=== PATIENT | female | born 2000 | race Two or more races ===

== ENCOUNTER 2022-05-29 11:22 | Outpatient (REF) | payer OTHER, SELFPAY ==
[2022-05-29 13:58] LABS: Hematocrit 38.3 % (37.0-47.0); Hemoglobin 12.3 g/dl (12.0-16.0); Mean Corpuscular HGB Conc 32.1 g/dl (31.0-35.0); Mean Corpuscular Hemoglobin 25.9 pg (27.0-33.0); Mean Corpuscular Volume 80.8 fL (80.0-98.0); Mean Platelet Volume 10.1 fL (9.4-12.3); Platelet Count 316 X10*3/uL (160-400); Red Blood Count 4.74 X10*6/uL (4.20-5.50); Red Cell Distribution Width 13.4 % (11.0-16.0); White Blood Count 9.5 X10*3/uL (4.8-10.8)
[2022-05-29 14:50] LABS: Alanine Aminotransferase 13 U/L (0-31); Albumin Level 3.8 g/dL (3.5-5.0); Alkaline Phosphatase 57 U/L (39-117); Anion Gap 13 (12-20); Aspartate Amino Transferase 15 U/L (5-31); Bilirubin Total 0.6 mg/dL (0.0-1.0); Blood Urea Nitrogen 11 mg/dL (9-16); Calcium 9.1 mg/dL (8.4-10.2); Carbon Dioxide 22 mmol/L (22-29); Chloride 108 mmol/L (96-108); Cholesterol 132 mg/dL; Estimated Glomerular Filt Rate > 60; Glucose Fasting 74 mg/dL (60-99); HDL Cholesterol 43 mg/dL; LDL Cholesterol Calculated 73 mg/dl; Potassium 4.6 mmol/L (3.3-5.1); Sodium 138 mmol/L (135-145); Total Protein 6.7 g/dL (6.5-8.0); Triglycerides 84 mg/dL
[2022-05-29 15:04] LABS: Folate > 20.0 ng/mL (> or = 4.0); TSH reflex Free T4 1.55 uIU/mL (0.32-4.0)
== END 2022-05-29 11:23 | disposition home or self-care (01) ==
LOC: HO.WFDLDS 11:22
PROVIDERS: Visit Provider Hospitalist
DX: O99.211 Obesity complicating pregnancy, first trimester (principal); E66.01 Morbid (severe) obesity due to excess calories; Z3A.01 Less than 8 weeks gestation of pregnancy
CPT/HCPCS: 36415; 80053; 80061; 82746; 84443; 85027

== ENCOUNTER 2023-12-02 15:04 | Outpatient (AMB) | payer OTHER, SELFPAY ==
--- NOTE | 2023-12-02 15:11 | A.OFFPC_ITS ---
Vital Signs 12/02/23 15:18 Height 5 ft 1.73 in Weight 243 lb 8 oz BMI 44.9 BP 104/78 Blood Pressure Location Lt brachial Position Sitting Respiration 16 Pulse 87 Pulse Source Pulse Oximeter Temp 98.8 F Temp Source Oral Pulse Oximetry (%) 98 Oxygen Delivery Method Room Air Intake Visit Reasons: ALETA/yellowing hands Intake Note: New patient visit. Went to [facility] last Friday, they were supposed to fax records and ultrasound. Not scanned in her chart yet. Maintenance Job Titles Required: No Allergies No Known Allergies Allergy (Verified 12/02/23 15:11) Tobacco use date assessed: 12/02/23 Dental Screening Dental Screen Date: 12/02/23 Did you have a dental visit in the last 12 months?: Yes Did you have a dental problem in the last 6 months where you did not have access to dental care?: No Was dental information given to patient?: Patient has dentist (Has appt set up for 12/16/23) HPI HPI Comments History of Present Illness Details Patient is a 22 year old female with a past medical history of anxiety presenting to [facility] care She was recently in [facility] ED where she was evaluated for epigastric/chest pain. Her records were requested but have not yet been received. She had an ultrasound of the abdomen which showed gallstones without cholecystitis. She was advised to follow up with pcp etc. She continues to have freuqnent episodes of pain in the epigastric area/chest. She is unsure if it is worse with breathing, eating or position. denies vomiting/ dark or blood in the stool ROS see HPI PHYSICAL EXAM: GENERAL: Alert and oriented x 3. NAD EYES: EOMI. Anicteric. HENT: Moist mucous membranes. No scleral icterus. No cervical lymphadenopathy. LUNGS: Clear to auscultation bilaterally. CARDIOVASCULAR: Regular rate and rhythm. No murmur. No JVD. ABDOMEN: Soft, non-tender +bs EXTREMITIES: No edema. Non-tender. SKIN: No rashes or lesions. Warm. NEUROLOGIC: No focal neurological deficits. CN II-XII grossly intact PSYCHIATRIC: Cooperative. Appropriate mood and affect [facility] Medical History Blockage of kidney vein Kidney infection Family History Mother Hypertension Enlarged heart Maternal Grandmother Hypertension Diabetes Maternal Grandfather Cancer Sister Asthma Social History Housing: House Alcohol intake: never Patient Tobacco Use Status: Never used Tobacco e-Cigarette/Vaping Use: Never Used Second Hand Smoke Exposure: No service: No Current occupational status: employed Current occupation: Adminstrative marketing communications assistant Current occupational exposures/hazards: No Cognitive needs: No Hearing needs: No Vision needs: No Questionnaire PHQ-9 Over the last 2 weeks, how often have you been bothered by any of the following problems? 1. Little interest or pleasure in doing things: not at all 2. Feeling down, depressed, or hopeless: not at all 3. Trouble falling or staying asleep, or sleeping too much: not at all 4. Feeling tired or having little energy: not at all 5. Poor appetite or overeating: not at all 6. Feeling bad about yourself - or that you are a failure or have let yourself or your family down: not at all 7. Trouble concentrating on things, such as reading the newspaper or watching television: not at all 8. Moving or speaking so slowly that other people could have noticed. Or the opposite - being so fidgety or restless that you have been moving around a lot more than usual: not at all 9. Thoughts that you would be better off or of hurting yourself in some way: not at all Total score: 0 Depression Screening Interpretation: Negative Depression Screening Done: Yes [id number] - PHQ-9 Billing: Yes Source: Developed by Drs. Gerry Claire, Rachel Ortiz, Jamari Whittington and colleagues, with an educational dacia from [employer]. Thrive Questionnaire Date Thrive assessed: 05/29/22 I am a: Patient What is your living situation today?: I have a steady place to live Within the past 12 months, did the food you bought not last and you didn't have the money to get more?: I choose not to answer this question Within the past 12 months, did you worry whether your food would run out before you got money to buy more?: Never true Do you have trouble paying for medicines?: No Do you have trouble getting transportation to medical appointments?: No Do you have trouble paying your heating and electricity bill?: No Do you have trouble taking care of your child, family member or friend?: No Do you have trouble with day-to-day activities such as bathing, preparing meals, shopping, managing finances, etc.?: No Are you currently unemployed and looking for a job?: No Are you interested in more education?: No Please select the resources that you would like help with: None Currently or been in a relationship where the following occur: No concerns reported THRIVE Score: 0 AUDIT C Alcohol Use Questionnaire (AUDIT-C) 1. How often do you have a drink containing alcohol?: Never 3. How often do you have six or more drinks on one occasion?: Never Total Score: 0 BRODY-7 AMB Questionnaire BRODY-7 Date BRODY - 7 assessed: 05/29/22 Feeling nervous, anxious, or on edge: 0 = Not at all Not being able to stop or control worryin = Not at all Worrying too much about different things: 0 = Not at all Trouble relaxin = Not at all Being so restless that it is hard to sit still: 0 = Not at all Becoming easily annoyed or irritable: 0 = Not at all Feeling afraid as if something awful might happen: 0 = Not at all Total BRODY-7 score (0-4 normal; 5-9 mild; 10-14 moderate; 15-21 severe): 0 Source: Developed by Drs. Gerry Claire, Rachel Ortiz, Jamari Whittington and colleagues, with an educational dacia from [employer]. Physical exam (Primary Care) Vital Signs: Last Vital Signs Temp 98.8 F 12/02/23 15:18 Pulse 87 12/02/23 15:18 Resp 16 12/02/23 15:18 BP 104/78 12/02/23 15:18 Pulse Ox 98 12/02/23 15:18 Oxygen Delivery Method Room Air 12/02/23 15:18 BMI result Body Mass Index 44.9 Tobacco/Smoking Status: Tobacco use Status Tobacco use date assessed 12/02/23 12/02/23 15:13 Patient Tobacco Use Status Never used Tobacco 12/02/23 15:13 e-Cigarette/Vaping Use Never Used 10/01/24 15:13 PHQ-9: PHQ-9 Score PHQ-9: Total score 0 12/14/23 14:14 Depression Screening Interpretation: Negative Thrive Assessment: Date of Thrive Assessment Date Thrive assessed 05/29/22 12/02/23 15:13 Currently or been in a relationship where the following occur: No concerns re ported Coding Level of Care Code New Pt Level 4 (04929) Diagnoses Chest pain, unspecified type R07.9 Chest pain type: unspecified Assessment & Plan Assessment & Plan (1) Chest pain: Code(s): R07.9 - Chest pain, unspecified Category: Medical Qualifiers: Chest pain type: unspecified Qualified Code(s): R07.9 - Chest pain, unspecified Plan: Suspect that gallstones are an incidental finding based on patients symptoms however will refer to general surgery for evaluation especially in light of not having her ER records today. Symptoms seem more consistent with gerd/gastritis/pud. Trial omeprazole. Orders: Orders XR chest 2V 12/02/23 R05.9 - Cough, unspecified, R07.9 - Chest pain, unspecif ied Referrals General Surgery Referral K80.20 - Calculus of gallbladder without cholecystitis without obstruction Medications: New omeprazole Take 2 tab oral once daily for one week, then 1 tab oral once daily for 3 weeks then as needed for heartburn 20 mg PO DAILY 90 caps 0RF
[2023-12-02 15:18] VITALS: BP 104/78; PULSE 87; RESP 16; TEMP 37.1; O2SAT 98; BMI 44.9
== END 2023-12-02 15:55 | disposition home or self-care (01) ==
PROVIDERS: PCP Internal Medicine; Visit Provider Internal Medicine
DX: R07.9 Chest pain, unspecified (principal)

== ENCOUNTER → 2023-12-02 15:04 | Outpatient (BNVA) | payer OTHER, SELFPAY | PROVIDERS: PCP Internal Medicine; Visit Provider Internal Medicine | DX: R07.9 Chest pain, unspecified (principal); R05.9 Cough, unspecified | CPT/HCPCS: 99202 ==

== ENCOUNTER 2023-12-17 07:29 | Outpatient (AMB) | payer OTHER, SELFPAY ==
--- NOTE | 2023-12-17 07:35 | A.OFFVIS_ITS ---
Vital Signs 12/17/23 07:36 Height 5 ft 1.73 in Weight 245 lb BMI 45.2 BP 111/67 Blood Pressure Location Rt brachial Position Sitting Pulse 76 Intake Visit Reasons: Calculus of GB Intake Note: Patient referred for calculus of gallbladder. Patient c/o: First aware of gallbladder issues while last year. RUQ pain. Nausea, diarrhea. Adrienne Fontanez ABD US: 11-28-2023. Special Service Representative Required: No Accompanied by: Self / Same As Patient Allergies No Known Allergies Allergy (Verified 12/17/23 07:56) HPI Comments Details: Patient is a proximally 1 year . During her and post birthing she has had bouts of epigastric/right upper quadrant pain and around to her back. She states she had a sonogram at an outside facility that showed gallstones. This was done at [facility] and I reviewed the reading which demonstrated no gallstones. In the meantime, patient was tolerating a diet. He is having regular bowel habits. She has never been jaundiced before. She has persistence of her symptoms and would like to have this evaluated. Chart was reviewed and patient evaluate [facility] Medical History Blockage of kidney vein Kidney infection Family History Mother Hypertension Enlarged heart Maternal Grandmother Hypertension Diabetes Maternal Grandfather Cancer Sister Asthma Social History Housing: House Alcohol intake: never Patient Tobacco Use Status: Never used Tobacco e-Cigarette/Vaping Use: Never Used Second Hand Smoke Exposure: No service: No Current occupational status: employed Current occupation: Adminstrative surgical assistant certified Current occupational exposures/hazards: No Cognitive needs: No Hearing needs: No Vision needs: No Physical Exam Vital Signs: Last Vital Signs Pulse 76 12/17/23 07:36 BP 111/67 12/17/23 07:36 BMI result Body Mass Index 45.2 Chest Other: Chest breath sounds bilaterally, HS 1 in 2 GI Other: Abdomen corpulent, soft, benign Assessment & Plan Assessment & Plan (1) Right upper quadrant abdominal pain: Code(s): R10.11 - Right upper quadrant pain Category: Surgical Plan Current plan is to repeat the sonogram and direct further therapy based on these results. Patient will see me after the study. All questions answered. Coding Level of Care Code New Pt Level 4 (27504) Diagnoses Right upper quadrant abdominal pain R10.11
[2023-12-17 07:36] VITALS: BP 111/67; PULSE 76; BMI 45.2
== END 2023-12-17 08:00 | disposition home or self-care (01) ==
LOC: HO.HGS 07:30
PROVIDERS: PCP Internal Medicine; Referring Provider Internal Medicine; Visit Provider Surgery
DX: R10.11 Right upper quadrant pain (principal)
CPT/HCPCS: 99204

== ENCOUNTER → 2023-12-17 07:29 | Outpatient (BNVA) | payer OTHER, SELFPAY | PROVIDERS: PCP Internal Medicine; Referring Provider Internal Medicine; Visit Provider Surgery | DX: K80.20 Calculus of gallbladder without cholecystitis without obstruction (principal); R10.11 Right upper quadrant pain | CPT/HCPCS: 99202 ==

== ENCOUNTER 2024-04-09 15:37 | Outpatient (AMB) | payer OTHER, SELFPAY ==
--- NOTE | 2024-04-09 15:39 | A.OFFPC_ITS ---
Vital Signs 04/09/24 15:42 Height 5 ft 1.73 in Weight 252 lb BMI 46.5 BP 102/54 L Blood Pressure Location Lt brachial Position Sitting Respiration 16 Pulse 113 H Pulse Source Pulse Oximeter Pulse Oximetry (%) 98 Oxygen Delivery Method Room Air Intake Visit Reasons: Weight loss Intake Note: Discuss weight loss options. Supervising Law Enforcement Analyst Required: No Allergies No Known Allergies Allergy (Verified 04/09/24 15:40) Tobacco use date assessed: 12/02/23 Dental Screening Dental Screen Date: 12/02/23 HPI HPI Comments History of Present Illness Details Patient is a 23 year old female with a past medical history of anxiety, obesity presenting for obesity Obesity: Despite dietary and lifestyle changes patient is frustrated by inability to lose weight. Her current BMI is 46.5. She is finding it hard to exercise with her weight ROS see HPI PHYSICAL EXAM: GENERAL: Alert and oriented x 3. NAD EYES: EOMI. Anicteric. HENT: Moist mucous membranes. No scleral icterus. No cervical lymphadenopathy. LUNGS: Clear to auscultation bilaterally. CARDIOVASCULAR: Regular rate and rhythm. No murmur. No JVD. ABDOMEN: Soft, non-tender +bs EXTREMITIES: No edema. Non-tender. SKIN: No rashes or lesions. Warm. NEUROLOGIC: No focal neurological deficits. CN II-XII grossly intact PSYCHIATRIC: Cooperative. Appropriate mood and affect [facility] Medical History Blockage of kidney vein Kidney infection Family History Mother Hypertension Enlarged heart Maternal Grandmother Hypertension Diabetes Maternal Grandfather Cancer Sister Asthma Other FH: mental illness Social History (Updated 04/09/24 @ 15:42 by Soledad Monreal CMA) Housing: House Alcohol intake: never Patient Tobacco Use Status: Never used Tobacco e-Cigarette/Vaping Use: Never Used Second Hand Smoke Exposure: No Substance Use Type: Former Substance User and Marijuana service: No Current occupational status: employed Current occupation: Adminstrative speech and language assistant Current occupational exposures/hazards: No Cognitive needs: No Hearing needs: No Vision needs: No Questionnaire PHQ-9 Over the last 2 weeks, how often have you been bothered by any of the following problems? 1. Little interest or pleasure in doing things: not at all 2. Feeling down, depressed, or hopeless: not at all 3. Trouble falling or staying asleep, or sleeping too much: not at all 4. Feeling tired or having little energy: more than half the days 5. Poor appetite or overeating: not at all 6. Feeling bad about yourself - or that you are a failure or have let yourself or your family down: not at all 7. Trouble concentrating on things, such as reading the newspaper or watching television: not at all 8. Moving or speaking so slowly that other people could have noticed. Or the opposite - being so fidgety or restless that you have been moving around a lot more than usual: not at all 9. Thoughts that you would be better off or of hurting yourself in some way: not at all Total score: 2 Source: Developed by Drs. Gerry Claire, Rachel Ortiz, Jamari Whittington and colleagues, with an educational dacia from [employer]. Thrive Questionnaire Date Thrive assessed: 04/09/24 I am a: Patient What is your living situation today?: I have a steady place to live Within the past 12 months, did the food you bought not last and you didn't have the money to get more?: I choose not to answer this question Within the past 12 months, did you worry whether your food would run out before you got money to buy more?: I choose not to answer this question Do you have trouble paying for medicines?: No Do you have trouble getting transportation to medical appointments?: No Do you have trouble paying your heating and electricity bill?: I choose not to answer this question Do you have trouble taking care of your child, family member or friend?: No Do you have trouble with day-to-day activities such as bathing, preparing meals, shopping, managing finances, etc.?: No Are you currently unemployed and looking for a job?: No Are you interested in more education?: No Please select the resources that you would like help with: None Currently or been in a relationship where the following occur: No concerns reported THRIVE Score: 0 AUDIT C Alcohol Use Questionnaire (AUDIT-C) 1. How often do you have a drink containing alcohol?: Never Total Score: 0 BRODY-7 AMB Questionnaire BRODY-7 Date BRODY - 7 assessed: 04/09/24 Feeling nervous, anxious, or on edge: 0 = Not at all Not being able to stop or control worryin = Not at all Worrying too much about different things: 0 = Not at all Trouble relaxin = Not at all Being so restless that it is hard to sit still: 0 = Not at all Becoming easily annoyed or irritable: 0 = Not at all Feeling afraid as if something awful might happen: 0 = Not at all Total BRODY-7 score (0-4 normal; 5-9 mild; 10-14 moderate; 15-21 severe): 0 Source: Developed by Drs. Gerry Claire, Rachel Ortiz, Jamari Whittington and colleagues, with an educational dacia from [employer]. BRODY-7 Assessment Billing BRODY-7 Assessment Tool: BRODY-7 Assessment 33092 Physical exam (Primary Care) Vital Signs: Last Vital Signs Pulse 113 H 04/09/24 15:42 Resp 16 04/09/24 15:42 BP 102/54 L 04/09/24 15:42 Pulse Ox 98 04/09/24 15:42 Oxygen Delivery Method Room Air 04/09/24 15:42 BMI result Body Mass Index 46.5 Tobacco/Smoking Status: Tobacco use Status Tobacco use date assessed 12/02/23 04/09/24 15:45 Patient Tobacco Use Status Never used Tobacco 04/09/24 15:45 e-Cigarette/Vaping Use Never Used 04/09/24 15:45 PHQ-9: PHQ-9 Score PHQ-9: Total score 2 04/13/24 11:13 Thrive Assessment: Date of Thrive Assessment Date Thrive assessed 04/09/24 04/09/24 15:45 Currently or been in a relationship where the following occur: No concerns reported Coding Level of Care Code Est Pt Level 4 (73050) Diagnoses Morbid obesity E66.01 Additional Codes BRODY-7 Assessment Billing - BRODY-7 Assessment Tool: BRODY-7 Assessment 75559 ([id number]) Assessment & Plan Assessment & Plan (1) Morbid obesity: Code(s): E66.01 - Morbid (severe) obesity due to excess calories Category: Medical Plan: Start zepound. Follow up in 4 weeks for weight follow up/dose adjustment Orders: Orders Comprehensive Met. Panel 04/09/24 E66.01 - Morbid (severe) obesity due to excess calories Hemoglobin A1c 04/09/24 E66.01 - Morbid (severe) obesity due to excess calories TSH reflex Free T4 04/09/24 E66. - Morbid (severe) obesity due to excess calories Referrals Director Of Casino Marketing Nutrition Referral E66.01 - Morbid (severe) obesity due to excess calories Medications: New Zepbound (tirzepatide (weight loss)) for 4 weeks 2.5 mg (0.5 mL) subcut QWEEK 2 mL 0RF NS
--- OUTSIDE RECORDS SUMMARY | 2024-04-09 15:39 | XMS_ITS | Clinical Summary ---
Author Organization [facility] ity Address [address] [place] [address] Care Team Providers Care Char Belt Operator Name Role Phone Manpreet Renee NP Primary Care Provider Social History Tobacco Use Types Packs/Day Years Used Date Smoking Tobacco: Never Assessed Sex and Gender Information Value Date Recorded Sex Assigned at Not on file Gender Identity Not on file Sexual Orientation Not on file Plan of Treatment Health Maintenance Due Date Last Done Comments Gonorrhea/Chlamydia Screening 1999 HPV Vaccines (1 - 3-dose series) 12/14/2014 DTaP,Tdap,and Td Vaccines (1 - Tdap) 12/14/2018 Hepatitis B Vaccines (1 of 3 - 19+ 3-dose series) 12/14/2018 Cervical Cancer Screening: P ap Smear 12/14/2020 Depression Screening 01/29/2022 HIV Screening 01/29/2022 Hepatitis C Screening 01/29/2022 Social Influencers of Health Screening 01/29/2022 COVID-19 Vaccine ( - 2023-2 5 season) 2023 Influenza Vaccine (#1) 2023 9, 04/10/2016 Meningococcal ACWY Vaccine Completed 04/10/2016 Hepatitis A Vaccines Completed 11/11/2016, 04/10/2016 HIB Vaccines Aged Out No longer eligi ble based on patient's age to complete this topic IPV Vaccines Aged Out No longer eligi ble based on patient's age to complete this topic MMR Vaccines Aged Out No longer eligi ble based on patient's age to complete this topic Pneumococcal Vaccine: Pediatrics (0 to 5 Years) and At-Risk Patients (6 to 64 Years) Aged Out No longer eligible b ased on patient's age to complete this topic RSV Immunization Patients Under 20 months Aged Out No longer eligible b ased on patient's age to complete this topic Varicella Vaccines Aged Out No longer eligible based on patient's age to complete this topic Care Teams Char Belt Operator Relationship Specialty Start Date End Date Manpreet Renee NP [address] [facility] KAREL Edwards PCP - General 12/05/21
[2024-04-09 15:42] VITALS: BP 102/54; PULSE 113; RESP 16; O2SAT 98; BMI 46.5
== END 2024-04-09 16:05 | disposition home or self-care (01) ==
PROVIDERS: PCP Internal Medicine; Visit Provider Internal Medicine
DX: E66.01 Morbid (severe) obesity due to excess calories (principal); Z68.42 Body mass index [BMI] 45.0-49.9, adult

== ENCOUNTER → 2024-04-09 15:37 | Outpatient (BNVA) | payer OTHER, SELFPAY | PROVIDERS: PCP Internal Medicine; Visit Provider Internal Medicine | DX: E66.01 Morbid (severe) obesity due to excess calories (principal); F41.9 Anxiety disorder, unspecified; Z68.42 Body mass index [BMI] 45.0-49.9, adult | CPT/HCPCS: 96127; 99212 ==

== ENCOUNTER 2024-04-15 13:13 | Outpatient (AMB) | payer OTHER, SELFPAY ==
--- NOTE | 2024-04-15 13:15 | A.OFFVIS_ITS ---
VS Expanded 04/15/24 13:26 04/27/24 19:30 Height 5 ft 1.73 in 5 ft 1.7 in Weight 251 lb 5.231 oz 251 lb BMI 46.4 46.4 Intake Visit Reasons: Obesity Allergies No Known Allergies Allergy (Verified 04/09/24 15:40) Nutrition Presentation Details: Pt presents for MNT for morbid obesity Pt reports lack of meal pattern and increased appetite throughout the day food frequency fruits: 3+ vex/wk dairy>4 /d starches >20 fish:not including beverages: water, juices, milk fried foods 2-3 x/wk etoh/smoking denies BS Monitoring Most Recent Diabetes Results: Cholesterol 132 mg/dL 05/29/22 HDL Cholesterol 43 mg/dL 05/29/22 Triglycerides 84 mg/dL 05/29/22 Creatinine 0.71 mg/dL (0.5-1.4) 05/29/22 Blood Urea Nitrogen 11 mg/dL (9-16) 05/29/22 Sodium 138 mmol/L (135-145) 05/29/22 Potassium 4.6 mmol/L (3.3-5.1) 05/29/22 Chloride 108 mmol/L (96-108) 05/29/22 Carbon Dioxide 22 mmol/L (22-29) 05/29/22 Calcium 9.1 mg/dL (8.4-10.2) 05/29/22 AST 15 U/L (5-31) 05/29/22 ALT 13 U/L (0-31) 05/29/22 Total Protein 6.7 g/dL (6.5-8.0) 05/29/22 Albumin 3.8 g/dL (3.5-5.0) 05/29/22 AVP-Aqxdnuo-Mu.Jeor Equation Height: 5 ft 1.7 in Weight: 251 lb Resting Metabolic Rate: 1837.80 Calculated Activity Level: Mild Activity Calories Needed to Maintain Weight: 2526.98 Diagnosis Nutrition problem #1: excessive energy intake As related to (etiology) #1: diagnosis As evidenced by (sign/symptom) #1: high BMI (46.4 (04/27)) PFSH Medical History Blockage of kidney vein Kidney infection Family History Mother Hypertension Enlarged heart Maternal Grandmother Hypertension Diabetes Maternal Grandfather Cancer Sister Asthma Other FH: mental illness Social History (Updated 04/09/24 @ 15:42 by Soledad Monreal CMA) Housing: House Alcohol intake: never Patient Tobacco Use Status: Never used Tobacco e-Cigarette/Vaping Use: Never Used Second Hand Smoke Exposure: No Substance Use Type: Former Substance User and Marijuana service: No Current occupational status: employed Current occupation: Adminstrative preschool assistant Current occupational exposures/hazards: No Cognitive needs: No Hearing needs: No Vision needs: No Assessment & Plan Assessment & Plan (1) Morbid obesity: Code(s): E66.01 - Morbid (severe) obesity due to excess calories Category: Medical Plan: Wt: 114 Kg ( 04/27 ) Est kcal needs as per MSJ: 2500 (40% carb, 30% protein/fat) Est fluid needs as per 25-30 ml/d: 3422 Est prot per day as per 1 g/kg bw: 114 Recommend fiber intake : 8-10 g per day and gradually increase to 25-28 g per day for women and 35-38 g for men or as tolerated Recommend sodium intake per day : less than 2000 mg Educated patient on: ( R = reviewed V = verbalizes understanding N/R = needs review N/A = not applicable * Food sources of carbohydrate, adequate serving sizes and its role in various health conditions: R * Differences between complex carbohydrates a simple carbohydrates, role of fiber in diet: R * Lean protein sources of foods: R V NR * Differences between types of fats and role in diet (mono on saturated fat fatty acids, saturated fatty acids, trans fats): R basic * Food sources of sodium in salt and healthy modifications for heart health in kidney health: R V R/V * Vitamins and minerals: R V N/R * Healthy plate method concept: R V N/R * Physical activity: Benefits a precaution: R V N/R Patient Instructions: Work on reducing sugars (beverages/pastries and similar foods) Reduce total carb to less than 80 g at meal (3 meals/day and 0-20 g carb as snack (2-3 /day) Keep hydrated by having water with meals, low sugar beverages (dilute juices with water, have fruit/herb flavored water ) Practice mindful eating Coding Level of Care Code Nutr Indiv Intake (70262) Diagnoses Morbid obesity E66.01 Time Spent (min) 30
--- OUTSIDE RECORDS SUMMARY | 2024-04-15 13:21 | XMS_ITS | Clinical Summary ---
Author Organization [facility] ity Address [id number] [place] [id number] Care Team Providers Care Parking Lot Chauffeur Name Role Phone Manpreet Renee NP Primary Care Provider Social History Tobacco Use Types Packs/Day Years Used Date Smoking Tobacco: Never Assessed Comments Unknown Sex and Gender Information Value Date Recorded Sex Assigned at Not on file Legal Sex Female 11:04 AM EST Gender Identity Not on file Sexual Orientation [...] on patient's age to complete this topic Meningococcal B Vacine Aged Out No lo nger eligible based on patient's age to complete [...] age to complete this topic Care Teams Parking Lot Chauffeur Relationship Specialty Start Date End Date Manpreet Renee NP [address] [facility] [place] PCP - General 12/05/21
[2024-04-15 13:26] VITALS: BMI 46.4
[2024-04-27 19:30] VITALS: BMI 46.4
== END 2024-04-15 13:49 | disposition home or self-care (01) ==
PROVIDERS: PCP Internal Medicine; Visit Provider Dietitian, Registered
DX: E66.01 Morbid (severe) obesity due to excess calories (principal)

== ENCOUNTER → 2024-04-15 13:13 | Outpatient (BNVA) | payer OTHER, SELFPAY | PROVIDERS: PCP Internal Medicine; Visit Provider Dietitian, Registered | DX: E66.01 Morbid (severe) obesity due to excess calories (principal); Z68.42 Body mass index [BMI] 45.0-49.9, adult | CPT/HCPCS: 97802 ==

== ENCOUNTER → 2024-05-10 13:20 | Outpatient (BNVA) | payer OTHER, SELFPAY | PROVIDERS: PCP Internal Medicine; Visit Provider Internal Medicine ==